=== PATIENT | female | born 1975 | race Caucasian/White ===

== ENCOUNTER 2017-01-13 08:09 | Emergency (ER) | payer OTHER ==
[~2017-01-13] VITALS: Ht 160 cm; Wt 155.6 kg
[2017-01-13 08:20] VITALS: TEMP 37; Ht 160 cm; Wt 155.6 kg
[2017-01-13] MEDS ORDERED: ONDANSETRON INJ 2 MG/ML 2 ML VIAL IV STA (08:22)
[2017-01-13] MEDS ORDERED: SODIUM CHLORIDE 0.9% 1000ML 1,000 ML IV STA (08:22)
[2017-01-13] MEDS ORDERED: HYDROmorphone INJ 1 MG/ML SYR IV STA (08:22)
--- NOTE | 2017-01-13 08:30 | EMERGENCY ROOM VISIT NOTE ---
History Report prepared by Pjibe: Melissa Bonilla Under the Supervision of: Dr. Oliva Ziegler M.D. First contact with patient: 08:15 Chief Complaint: ABDOMINAL PAIN Stated Complaint: PAIN ON SIDE FROM COUGHING History of Present Illness The patient is a 41 year old female who presents to the Emergency Room with complaints of persistent left sided rib pain that began about 2 hours ago. The patient states that she has had a cough and runny nose over the past week. She was seen by her physician and is on Zithromax and Tessalon Perles. This morning , the patient had an episode of coughing and suddenly developed burning, striking pain in her left side. It radiates through her abdomen. She had difficulty getting out of bed due to her pain. She notes that her pain has improved to a 5/10 in severity but worsens to a 9/10 when she coughs. She smokes between a half pack and a full pack of cigarettes a day. She has a 23 year history of smoking. Source of History: patient Onset: 2 hours ago Position: other (left ribs) Symptom Intensity: 5/10 Timing: other (persistent) Modifying Factors (Worsening): other (coughing) Associated Symptoms: + cough Review of Systems See HPI for pertinent positives & negatives. A total of 10 systems reviewed and were otherwise negative. Past Medical & Surgical Medical Problems: (1) No Known Active Medical Problems Family History No pertinent family history stated. Social History Marital Status: Housing Status: lives with family Current/Historical Medications Scheduled Albuterol Sulfate (Proventil Hfa), 2 PUFFS INH Q4H Azithromycin (Zithromax), 250 MG PO DAILY Diclofenac (Voltaren), 75 MG PO BIDM Furosemide (Lasix), 40 MG PO DAILY Phenylephrine W/ Acetaminophen (Sinus Congestion & Pain), 2 TAB PO Q4H Prednisone (Prednisone), 60 MG PO DAILY Scheduled PRN Albuterol Sulfate (Proventil Hfa), 2 PUFF INH Q6H PRN for Wheezing Benzonatate (Tessalon Perles), 100 MG PO TID PRN for Cough Tramadol (Ultram), 1-2 TABS PO Q6 PRN for Pain Allergies Coded Allergies: Penicillins (Unverified Adverse Reaction, Severe, CAN'T BREATH, 01/13/17) Acetaminophen (Unverified Adverse Reaction, Intermediate, RASH, 01/13/17) Hydrocodone (Unverified Adverse Reaction, Intermediate, RASH, 01/13/17) Physical Exam Vital Signs Date Time Temp Pulse Resp B/P Pulse Ox O2 Delivery O2 Flow Rate FiO2 01/13/17 11:27 82 22 124/84 93 01/13/17 10:21 80 20 139/83 97 Room Air 01/13/17 08:43 88 01/13/17 08:20 94 Room Air 01/13/17 08:20 37.0 111 24 226/125 94 Room Air Physical Exam Vital signs reviewed. General: Well-appearing 41 year old female, in no significant distress, morbidly obese. HEENT: No scleral icterus, PERRLA, neck supple. Atraumatic. Cardiovascular: Regular rate and rhythm, no extra sounds. Pulmonary: Clear to auscultation bilaterally, normal work of breathing. Abdomen: Soft, nontender, nondistended, positive bowel sounds. Musculoskeletal: Atraumatic, no peripheral edema. Mild tenderness to palpation over the left lateral chest and flank. No CVA tenderness. Neurologic: Patient awake alert and oriented x 3, full strength in all 4 extremities. Cranial nerves 2 through 12 grossly intact. Skin: Warm, dry, no rash Medical Decision & Procedures ER Provider Diagnostic Interpretation: Radiology results as stated below per my review and radiologist interpretation: CHEST 2 VIEWS ROUTINE CLINICAL HISTORY: Left-sided chest pain and cough. COMPARISON STUDY: No previous studies for comparison. FINDINGS: Lung volumes are normal. There is no pneumothorax or pleural effusion. Pulmonary vascularity is normal. Mild interstitial prominence is likely within normal limits. Cardiac size is at the upper limits of normal. IMPRESSION: 1. No acute findings. 2. Top normal cardiac size. Electronically signed by: Bhavin Cabrera M.D. 01/13/2017 9:36 AM Dictated Date/Time: 01/13/2017 9:35 AM Laboratory Results 01/13/17 08:35 Red Blood Count 5.01, Mean Corpuscular Volume 86.4, Mean Corpuscular Hemoglobin 29.1, Mean Corpuscular Hemoglobin Concent 33.7, Mean Platelet Volume 9.4, Neutrophils (%) (Auto) 63.0, Lymphocytes (%) (Auto) 27.9, Monocytes (%) (Auto) 7.5, Eosinophils (%) (Auto) 0.9, Basophils (%) (Auto) 0.1, Neutrophils # (Auto) 8.69, Lymphocytes # (Auto) 3.84, Monocytes # (Auto) 1.03, Eosinophils # (Auto) 0.12, Basophils # (Auto) 0.02 01/13/17 08:35 Test 01/13/17 08:35 01/13/17 08:42 White Blood Count 13.78 K/uL (4.8-10.8) Red Blood Count 5.01 M/uL (4.2-5.4) Hemoglobin 14.6 g/dL (12.0-16.0) Hematocrit 43.3 % (37-47) Mean Corpuscular Volume 86.4 fL (80-100) Mean Corpuscular Hemoglobin 29.1 pg (25-34) Mean Corpuscular Hemoglobin Concent 33.7 g/dl (32-36) Platelet Count 389 K/uL (130-400) Mean Platelet Volume 9.4 fL (7.4-10.4) Neutrophils (%) (Auto) 63.0 % Lymphocytes (%) (Auto) 27.9 % Monocytes (%) (Auto) 7.5 % Eosinophils (%) (Auto) 0.9 % Basophils (%) (Auto) 0.1 % Neutrophils # (Auto) 8.69 K/uL (1.4-6.5) Lymphocytes # (Auto) 3.84 K/uL (1.2-3.4) Monocytes # (Auto) 1.03 K/uL (0.11-0.59) Eosinophils # (Auto) 0.12 K/uL (0-0.5) Basophils # (Auto) 0.02 K/uL (0-0.2) RDW Standard Deviation 42.0 fL (36.4-46.3) RDW Coefficient of Variation 13.3 % (11.5-14.5) Immature Granulocyte % (Auto) 0.6 % Immature Granulocyte # (Auto) 0.08 K/uL (0.00-0.02) Anion Gap 9.0 mmol/L (3-11) Est Creatinine Clear Calc Drug Dose 110.6 ml/min Estimated GFR () 81.6 Estimated GFR (Non- 70.4 BUN/Creatinine Ratio 12.1 (10-20) Calcium Level 9.1 mg/dl (8.5-10.1) Total Bilirubin 0.2 mg/dl (0.2-1) Direct Bilirubin < 0.1 mg/dl (0-0.2) Aspartate Amino Transf (AST/SGOT) 35 U/L (15-37) Alanine Aminotransferase (ALT/SGPT) 45 U/L (12-78) Alkaline Phosphatase 86 U/L (45-117) Total Protein 7.4 gm/dl (6.4-8.2) Albumin 3.6 gm/dl (3.4-5.0) Bedside D-Dimer 270 ng/mlFEU (0-450) Bedside Troponin I 0.000 ng/ml (0-0.045) Laboratory results per my review. Medications Administered Medications (Trade) Dose Ordered Sig/Narinder Route Start Time Stop Time Status Last Admin Dose Admin Hydromorphone HCl (Dilaudid Inj) 1 mg NOW STAT IV 01/13/17 08:22 01/13/17 08:24 DC 01/13/17 08:49 1 MG Ondansetron HCl 4 mg 4 mg NOW STAT IV 01/13/17 08:22 01/13/17 08:24 DC 01/13/17 08:49 4 MG Sodium Chloride (Nss 1000ml) 1,000 ml @ 125 mls/hr Q8H STAT IV 01/13/17 08:22 01/13/17 11:52 DC 01/13/17 08:50 125 MLS/HR ECG Indication: other (rib pain) Rate (beats per minute): 85 Rhythm: normal sinus Findings: no acute ischemic change, no ectopy ED Course 0820: The patient was evaluated in room B5. A complete history and physical examination was performed. 0822: Ordered NSS 1000 ml @ 125 mls/hr IV, Zofran Inj 4 mg IV, Dilaudid Inj 1 mg IV. 1132: Upon reevaluation, the patient appeared to have improvement of her symptoms. I discussed findings with the patient. She verbalized agreement of the treatment plan. The patient was discharged home. Medical Decision Differential diagnosis: Acute coronary syndrome, pulmonary embolus, aortic dissection, musculoskeletal pain, pneumonia, pleural effusion, pneumothorax, pleurisy, muscular strain. This patient was evaluated and appeared to be in significant discomfort. IV access was obtained and laboratory work was drawn. The patient was medicated with IV Dilaudid and Zofran. She was hydrated with normal saline solution. Chest x-ray was performed and reveals no focal lung consolidation, evidence of pneumothorax or rib fracture. Laboratory work is fairly unrevealing, d-dimer is negative. There is a mild leukocytosis of uncertain etiology. The patient was informed of the findings. Patient was given a prescription for Ultram and albuterol. She'll follow-up with her physician this week for reevaluation and return to the ER for worsening of symptoms or any medical concerns. Impression Primary Impression: Intercostal muscle strain Additional Impression: Cough Scribe Attestation The scribe's documentation has been prepared under my direction and personally reviewed by me in its entirety. I confirm that the note above accurately reflects all work, treatment, procedures, and medical decision making performed by me. Departure Information Dispostion Home / Self-Care Prescriptions Tramadol (Ultram) 50 Mg Tab 1-2 TABS PO Q6 Y for Pain, #30 TAB Prov: Oliva Ziegler M.D. 01/13/17 Albuterol Sulfate (Proventil Hfa) 108 Mcg/Act Aer 2 PUFFS INH Q4H for 5 Days, #1 INHALER Prov: Oliva Ziegler M.D. 01/13/17 Referrals Germán Orozco D.O. (PCP) Patient Instructions [facility] Additional Instructions Diagnosis: Intercostal muscular strain, cough Albuterol 2 puffs every 4 hours as needed for cough or wheeze. Ibuprofen 600 mg every 6 hours as needed for pain with food. Tramadol 2 tablets every 6 hours as needed for pain. Warm compresses and gentle stretching for relief of her discomfort. Follow up with her physician this week for reevaluation Return to the ER for worsening of symptoms or any medical concerns. Problem Qualifiers
[2017-01-13] MEDS ORDERED: BENZ100C84 PO (08:43)
[2017-01-13] MEDS ORDERED: PRED20TA PO (08:43)
[2017-01-13] MEDS ORDERED: FRS/40 PO (08:43)
[2017-01-13] MEDS ORDERED: PHEN-283 PO (08:43)
[2017-01-13] MEDS ORDERED: DICL-201 PO (08:43)
[2017-01-13] MEDS ORDERED: ALBUAER INH ×2 (08:43→11:07)
[2017-01-13] MEDS ORDERED: AZIT250T PO (08:43)
[2017-01-13 08:50] LABS: HEMATOCRIT 43.3 % (37-47); MEAN CELL VOLUME 86.4 fL (80-100); MEAN CORPUSCULAR HEMOGLOBIN 29.1 pg (25-34); MEAN CORPUSCULAR HGB CONC 33.7 g/dl (32-36); MEAN PLATELET VOLUME 9.4 fL (7.4-10.4); PLATELET COUNT 389 K/uL (130-400); RED BLOOD COUNT 5.01 M/uL (4.2-5.4); WHITE BLOOD COUNT 13.78 K/uL (4.8-10.8)
[2017-01-13 09:09] LABS: ALT/SGPT 45 U/L (12-78); BLOOD UREA NITROGEN 12 mg/dl (7-18); BUN/CREATININE RATIO 12.1 (10-20); CALCIUM 9.1 mg/dl (8.5-10.1); CARBON DIOXIDE 25 mmol/L (21-32); CHLORIDE 105 mmol/L (98-107); GLUCOSE 143 mg/dl (70-99); POTASSIUM 3.7 mmol/L (3.5-5.1); SODIUM 139 mmol/L (136-145)
[2017-01-13 09:12] LABS: ALKALINE PHOSPHATASE 86 U/L (45-117); AST/SGOT 35 U/L (15-37)
[2017-01-13 09:25] LABS: BASO % 0.1 %; BASO ABS # 0.02 K/uL (0-0.2); COMPLETE YES; EOS % 0.9 %; IG% 0.6 %; LYMPH % 27.9 %; LYMPH ABS # 3.84 K/uL (1.2-3.4); MONO % 7.5 %
--- NOTE | 2017-01-13 09:37 | DIAGNOSTIC IMAGING REPORT ---
CHEST 2 VIEWS ROUTINE CLINICAL HISTORY: Left-sided chest pain and cough. COMPARISON STUDY: No previous studies for comparison. FINDINGS: Lung volumes are normal. There is no pneumothorax or pleural effusion. Pulmonary vascularity is normal. Mild interstitial prominence is likely within normal limits. Cardiac size is at the upper limits of normal. IMPRESSION: 1. No acute findings. 2. Top normal cardiac size. Electronically signed by: Bhavin Cabrera M.D. 01/13/2017 9:36 AM Dictated Date/Time: 01/13/2017 9:35 AM
[2017-01-13] MEDS ORDERED: TRAM-10 PO (11:07)
[2017-01-13 11:27] VITALS: BP 124/84; PULSE 82; O2SAT 93
== END 2017-01-13 11:28 | disposition home or self-care (01) ==
LOC: C.EDB 08:14
DX: S29.011A Strain of muscle and tendon of front wall of thorax, initial encounter (principal); X58.XXXA Exposure to other specified factors, initial encounter; R05 Cough; Z79.899 Other long term (current) drug therapy; F17.210 Nicotine dependence, cigarettes, uncomplicated